=== PATIENT | male | born 1930 | race Caucasian/White ===

== ENCOUNTER 2020-05-14 16:52 | Observation (INO) | payer OTHER ==
[~2020-05-14] VITALS: Ht 165.1 cm; Wt 108.0 kg
--- NOTE | 2020-05-14 17:15 | NUR ---
[employer] RESOURCE OFFICER: PT TO ROOM FROM LOBBY, GAIT SLOW AND STEADY.
--- NOTE | 2020-05-14 17:23 | NUR ---
PT SEEN AT CARE THIS AM. PT RECEIVED CALL FROM ADVISING PT TO COME TO ER, FOR UNKNOWN REASON. PT HR IN LOW 40s, PT DENIES SYMPTOMS. PT CONNECTED TO MONITORING. CALL LIGHT IN REACH. PT UNKNOWN OF SPECIFICS OF MEDS HE'S ON.
--- NOTE | 2020-05-14 17:47 | NUR ---
PIV PLACED, LABS DRAWN, INCLUDING 1 SET BLOOD CX. PT CONNECTED TO MONITORING. MD AT BEDSIDE FOR ASSESSMENT.
[2020-05-14 18:37] LABS: TROPONIN I < 0.015 ng/mL (0.000-0.045)
[2020-05-14] MEDS ORDERED: AMIO200T42 PO (18:47)
[2020-05-14] MEDS ORDERED: CLOP75TA PO (18:47)
[2020-05-14] MEDS ORDERED: RIVA20TA PO (18:47)
[2020-05-14] MEDS ORDERED: EDOX60TA2 PO (18:47)
[2020-05-14] MEDS ORDERED: METO5TAB5 PO (18:47)
[2020-05-14] MEDS ORDERED: LEVO88TA4 PO (18:47)
[2020-05-14] MEDS ORDERED: ISOS20TA58 PO (18:49)
[2020-05-14] MEDS ORDERED: ATEN50TA41 PO (18:49)
[2020-05-14] MEDS ORDERED: AMLO5TAB10 PO (18:49)
[2020-05-14] MEDS ORDERED: LEVO75TA5 PO (18:49)
[2020-05-14] MEDS ORDERED: TRIA15CR61 TP (18:49)
[2020-05-14] MEDS ORDERED: FURO40TA6 PO (18:49)
[2020-05-14] MEDS ORDERED: LOVA40TA2 PO (18:49)
[2020-05-14 18:57] LABS: MICROSCOPIC NOT IND
--- NOTE | 2020-05-14 18:59 | NUR ---
ALL RESULTS ARE BACK AT THIS TIME. CHART UP FOR RECHECK.
[2020-05-14] MEDS ORDERED: DIPHENHYDRAMINE 50 MG/ML, 1ML ONE (19:21)
[2020-05-14] MEDS ORDERED: DIPHENHYDRAMINE 50 MG/ML, 1ML IVPush ONE (19:30)
--- NOTE | 2020-05-14 19:33 | NUR ---
MD AT BEDSIDE TO UPDATE PT ON POC.
--- NOTE | 2020-05-14 21:12 | NUR ---
PT C/O CONTINUED ITCHING. VERBAL ORDER RECEIVED FOR PREDNISONE 60MG PO ONCE. ORDER PLACED AND CARRIED OUT. AWAITING ADMIT BED UPSTAIRS.
--- NOTE | 2020-05-14 21:44 | NUR ---
PT TRANSFERRED TO HOSPITAL BED. PT TO BE HOLD IN ER. NEPHEW WENT HOME. PT STATES ITCHING IS BETTER AFTER MEDS.
--- NOTE | 2020-05-14 23:01 | NUR ---
REPORT GIVEN TO ELHAM Mercado
--- NOTE | 2020-05-14 23:39 | NUR ---
REPORT TO BERNADETTE VALERO RN. PT DENIES ANY NEEDS AT THIS TIME. CALL LIGHT IN REACH.
--- NOTE | 2020-05-15 00:20 | NUR ---
HOSPITALIST AT BEDSIDE.
[2020-05-15] MEDS ORDERED: TRAZODONE 50MG TABLET PO PRN (00:30)
[2020-05-15] MEDS ORDERED: PHARMACY MAY ADJ FOR RENAL FX MC PRN (00:30)
[2020-05-15] MEDS ORDERED: POTASSIUM CHLORIDE 40 MEQ in SODIUM CHLORIDE 0.9% 500 ML IV ONE (00:30)
[2020-05-15] MEDS ORDERED: ACETAMINOPHEN 325 MG TABLET PO PRN (00:30)
[2020-05-15] MEDS ORDERED: LABETALOL 5MG/ML, 20ML IVPush PRN (00:30)
[2020-05-15] MEDS ORDERED: PROMETHAZINE 25 MG/ML, 1ML IM PRN (00:30)
[2020-05-15] MEDS ORDERED: POTASSIUM CHLORIDE 20 MEQ TAB.ER.PRT PO ONE (00:30)
--- NOTE | 2020-05-15 00:40 | NUR ---
PT LEAVING FLOOR NOW. DENIES ANY FURTHER NEEDS AT THIS TIME.
[2020-05-15 01:08] VITALS: BP 124/71
[2020-05-15 03:43] LABS: CREATININE,URINE RANDOM 87.8 mg/dL
[2020-05-15 03:44] LABS: CHLORIDE,URINE RANDOM 64 mmol/L; POTASSIUM,URINE RANDOM 24 mmol/L; SODIUM,URINE RANDOM 66 mmol/L
[2020-05-15 05:13] LABS: ANION GAP 11 mmol/L (5-15); CALCIUM 8.6 mg/dL (8.5-10.1); CHLORIDE 108 mmol/L (98-107); CREATININE 3.73 mg/dL (0.7-1.3)
[2020-05-15 05:16] LABS: CHOL/HDL RATIO 2.3; CHOLESTEROL, TOTAL 108 mg/dL (140-239); HDL CHOL % 44 % (26-37); HDL CHOLESTEROL (DIRECT) 48 mg/dL (40-60); LDL CHOLESTEROL,CALCULATED 48 mg/dL (54-169); TRIGLYCERIDES 62 mg/dL (50-200); VLDL CHOLESTEROL 12 mg/dL (0-25)
[2020-05-15 05:22] LABS: MEAN CORPUSCULAR HEMOGLOBIN 33.6 pg (27.5-34.5); MEAN CORPUSCULAR HGB CONC 32.9 g/dL (33.2-36.2); MEAN CORPUSCULAR VOLUME 102.1 fL (81-97); MEAN PLATELET VOLUME 8.9 fL (7.4-10.4); PLATELET COUNT 189 x10^3/uL (130-400)
[2020-05-15 05:58] LABS: MD YES
[2020-05-15] MEDS ORDERED: LEVOTHYROXINE 75 MCG TABLET PO SCH (06:00)
[2020-05-15 06:02] LABS: BAND#(MANUAL) 0.09 x10^3/uL; BANDS%(MANUAL) 1 % (0-7); EOS#(MANUAL) 1.23 x10^3/uL (0.0-0.4); EOS% (MANUAL) 14 % (1-7); LYMPH#(MANUAL) 0.88 x10^3/uL (1-3.4); LYMPHS% (MANUAL) 10 % (22-44); MYELOCYTES# (MANUAL) 0.09 x10^3/uL (0-0); MYELOCYTES% (MANUAL) 1 % (0-0); SEG#(MANUAL) 6.51 x10^3/uL (1.8-6.8); SEGS% (MANUAL) 74 % (42-75)
[2020-05-15 06:03] LABS: <PLATELET ESTIMATE> ADEQUATE; ANISOCYTOSIS 1+; LARGE PLATELETS 1+
[2020-05-15 06:29] VITALS: BP 115/56
[2020-05-15] MEDS ORDERED: AMLODIPINE 5 MG TABLET PO SCH (09:00)
[2020-05-15] MEDS ORDERED: RIVAROXABAN 20 MG TABLET PO SCH (09:00)
[2020-05-15] MEDS ORDERED: ISOSORBIDE DINITRATE 20 MG TABLET PO SCH (09:00)
[2020-05-15] MEDS ORDERED: METOLAZONE 5 MG TABLET PO SCH (09:00)
[2020-05-15] MEDS ORDERED: AMIODARONE 200 MG TABLET PO SCH (09:00)
[2020-05-15] MEDS ORDERED: FUROSEMIDE 40 MG/4 ML IV SCH (09:00)
[2020-05-15] MEDS ORDERED: LOVASTATIN 40 MG TABLET PO SCH (09:00)
[2020-05-15 12:11] VITALS: BP 127/69
[2020-05-15 14:08] LABS: ANION GAP 11 mmol/L (5-15); CALCIUM 8.8 mg/dL (8.5-10.1); CHLORIDE 107 mmol/L (98-107); CREATININE 3.68 mg/dL (0.7-1.3)
[2020-05-15] MEDS ORDERED: APIX2.5T PO (16:05)
[2020-05-16] MEDS ORDERED: APIXABAN 2.5 MG TABLET PO SCH (09:00)
== END 2020-05-15 18:24 | disposition home or self-care (01) ==
LOC: ED 18:11 → INTOOBSV 19:48 → EDIP 19:48 → 5SO 23:45
PROVIDERS: ADMIT Family Medicine; ATTEND Internal Medicine
DX: N17.9 Acute kidney failure, unspecified (principal); I13.0 Hypertensive heart and chronic kidney disease with heart failure and stage 1 through stage 4 chronic kidney disease, or unspecified chronic kidney disease; I50.30 Unspecified diastolic (congestive) heart failure; N18.9 Chronic kidney disease, unspecified; E66.9 Obesity, unspecified; E03.9 Hypothyroidism, unspecified; E78.5 Hyperlipidemia, unspecified; D72.829 Elevated white blood cell count, unspecified; D53.9 Nutritional anemia, unspecified; E87.6 Hypokalemia; I25.10 Atherosclerotic heart disease of native coronary artery without angina pectoris; I25.2 Old myocardial infarction; I48.91 Unspecified atrial fibrillation; Z66 Do not resuscitate
CPT/HCPCS: 36415; 71045; 76770; 80048; 80061; 81003; 82436; 82570; 82728; 83540; 83550; 83735; 83880; 84133; 84156; 84300; 84443; 84466; 84484; 85025; 93005; 93306; 96365; 96366; 96375; 99285; G0378; J1200; J1940; J3480; J7040; J7512